=== PATIENT | male | born 1940 | race Caucasian/White ===

== ENCOUNTER 2016-04-11 17:15 | Inpatient (IN) | payer MEDICARE, MEDICAID, OTHER ==
[~2016-04-11] VITALS: Ht 177.8 cm; Wt 91.0 kg
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
[2016-04-11 18:26] LABS: AUTOMATED NEUTROPHIL # 3.6 TH/MM3 (1.8-7.7); BASOPHIL # 0.1 TH/MM3 (0-0.2); EOSINOPHIL # 0.2 TH/MM3 (0-0.4); EOSINOPHIL % 2.9 % (0.0-4.0); HEMATOCRIT 32.2 % (39.0-51.0); HEMO FLAGS DIFF FINAL; LYMPH % 24.2 % (9.0-44.0); LYMPHOCYTE # 1.4 TH/MM3 (1.0-4.8); MEAN CELL VOLUME 80.5 FL (80.0-100.0); MEAN CORPUSCULAR HEMOGLOBIN 25.3 PG (27.0-34.0); MEAN CORPUSCULAR HGB CONC 31.4 % (32.0-36.0); MONO % 10.3 % (0.0-8.0); NEUT % 61.6 % (16.0-70.0); PLATELET COUNT 129 TH/MM3 (150-450); RED BLOOD COUNT 4.01 MIL/MM3 (4.50-5.90); RED CELL DISTRIBUTION WIDTH 19.9 % (11.6-17.2); WHITE BLOOD COUNT 5.9 TH/MM3 (4.0-11.0)
[2016-04-11 19:00] VITALS: BP 119/59; PULSE 67; RESP 17; TEMP 98.1; O2SAT 99
[2016-04-11 19:03] VITALS: BP 151/69; PULSE 57; RESP 18; TEMP 98.3; O2SAT 100
[2016-04-11 19:08] VITALS: BP 151/68; PULSE 56; RESP 18; O2SAT 100
[2016-04-11 19:15] VITALS: BP 171/74; PULSE 61; RESP 15; O2SAT 100
[2016-04-11 19:28] LABS: ACETAMINOPHEN 5.5 MCG/ML (10.0-30.0); ALKALINE PHOSPHATASE 71 U/L (45-117); ALT (GPT) 24 U/L (12-78); ANION GAP 6 MEQ/L (5-15); AST (GOT) 35 U/L (15-37); BICARBONATE 30.9 MEQ/L (21.0-32.0); BLOOD UREA NITROGEN 16 MG/DL (7-18); CHLORIDE 104 MEQ/L (98-107); GLOMERULAR FILTRATION RATE 46 ML/MIN (>89); SODIUM (NA) 141 MEQ/L (136-145); TOTAL BILIRUBIN ADULT 0.6 MG/DL (0.2-1.0)
[2016-04-11 19:29] LABS: POTASSIUM 4.3 MEQ/L (3.5-5.1)
[2016-04-11 19:33] LABS: BLOOD, URINE NEG (NEG); COMMENT (UR) CULT NOT INDICATED; CULTURE IF INDICATED CULT NOT INDICATED; GLUCOSE,URINE NEG (NEG); KETONE, URINE NEG (NEG); MUCUS URINE FEW /lpf (OCC); NITRITE,URINE NEG (NEG); SQUAMOUS EPITHELIAL CELL URINE 1 /hpf (0-5); URINE COLOR YELLOW (YELLW/STRAW)
[2016-04-11 19:34] LABS: AMPHETAMINE, URINE NEG (NEG); BARBITURATES, URINE NEG (NEG); COCAINE, URINE NEG (NEG)
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
[2016-04-11] MEDS ORDERED: BUSP10TA PO (21:23)
[2016-04-11] MEDS ORDERED: PLAV75TA29 PO (21:23)
[2016-04-11] MEDS ORDERED: ATOR40TA16 PO (21:23)
[2016-04-11] MEDS ORDERED: AMIO200T PO (21:23)
[2016-04-11] MEDS ORDERED: NITR50VP (21:34)
[2016-04-11] MEDS ORDERED: LISI-519 PO (21:34)
[2016-04-11] MEDS ORDERED: TRIA.025%T TOPICAL (21:34)
[2016-04-11] MEDS ORDERED: TAMS5CAP PO (21:34)
[2016-04-11] MEDS ORDERED: PROS5TAB PO (21:34)
[2016-04-11] MEDS ORDERED: METO25TA3 PO (21:34)
[2016-04-11] MEDS ORDERED: NEUR600T PO (21:34)
[2016-04-11] MEDS ORDERED: TYLETAB36 PO (21:34)
[2016-04-11] MEDS ORDERED: ALBUAER3 INH (21:34)
[2016-04-11] MEDS ORDERED: OMEP20CA2 (21:34)
[2016-04-11] MEDS ORDERED: SYNT25TA PO (21:34)
[2016-04-11] MEDS ORDERED: SERO100T PO (21:34)
[2016-04-11] MEDS ORDERED: NITR1SUB3 SL (21:34)
[2016-04-11] MEDS ORDERED: PRED5TAB PO (21:34)
[2016-04-11] MEDS ORDERED: OXYGEN NAS.CANULA (22:02)
[2016-04-11] MEDS ORDERED: MAGNESIUM HYDROXIDE SUSP 30 ML CUP PO PRN (22:15)
[2016-04-11] MEDS ORDERED: ALUMINUM/MAGNESIUM/SIMETH 30 ML CUP PO PRN (22:15)
[2016-04-11] MEDS: AMIODARONE 200 MG TAB PO SCH (23:00)
[2016-04-11] MEDS: ATORVASTATIN 40 MG TAB PO SCH (23:00)
[2016-04-11] MEDS: busPIRone HCL 10 MG TAB PO SCH (23:00)
[2016-04-11] MEDS: ACETAMINOPHEN 325 MG TAB PO PRN (23:09)
[2016-04-11] MEDS ORDERED: NITROGLYCERIN 0.4 MG SL 25 TABS/BTL SL PRN (23:15)
[2016-04-11] MEDS ORDERED: ALBUTEROL SULFATE 90 MCG/ACT HFA 8 GM INHALER INH PRN (23:15)
[2016-04-11 23:30] VITALS: BP 167/75; PULSE 69; RESP 19; TEMP 98.3; O2SAT 86
[2016-04-11 23:40] VITALS: O2SAT 86
[2016-04-12 05:10] VITALS: BP 114/65; PULSE 88; RESP 19; TEMP 98.6; O2SAT 94
[2016-04-12] MEDS: LISINOPRIL 5 MG TAB PO SCH (08:51)
[2016-04-12] MEDS: GABAPENTIN 300 MG CAP PO SCH ×3 (08:51→21:10)
[2016-04-12] MEDS: METOPROLOL TARTRATE 25 MG TAB PO SCH (08:51)
[2016-04-12] MEDS: FINASTERIDE 5 MG TAB PO SCH (08:51)
[2016-04-12] MEDS: AMIODARONE 200 MG TAB PO SCH ×2 (08:51→21:11)
[2016-04-12] MEDS: busPIRone HCL 10 MG TAB PO SCH ×2 (08:52→21:10)
[2016-04-12] MEDS: CLOPIDOGREL 75 MG TAB PO SCH (08:52)
[2016-04-12] MEDS: predniSONE 5 MG TAB PO SCH (08:52)
[2016-04-12] MEDS: PANTOPRAZOLE SOD 20 MG DELAYED RELEASE TAB PO SCH (09:00)
[2016-04-12] MEDS: LEVOTHYROXINE SODIUM 25 MCG TAB PO SCH (09:02)
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
[2016-04-12] MEDS: ACETAMINOPHEN 325 MG TAB PO PRN (12:05)
[2016-04-12] MEDS ORDERED: RESP: ALBUTEROL 2.5 MG/IPRATROPIUM 0.5 MG NEB (PRN) NEB (16:00)
[2016-04-12 17:44] VITALS: O2SAT 94
[2016-04-12 20:06] VITALS: BP 138/63; PULSE 62; RESP 16; TEMP 96; O2SAT 94
[2016-04-12] MEDS ORDERED: GABAPENTIN 300 MG CAP PO SCH (21:00)
[2016-04-12] MEDS: FLUOCINOLONE ACETONIDE 0.01% CR 15 GM TUBE TOPICAL SCH (21:10)
[2016-04-12] MEDS: TAMSULOSIN HCL 0.4 MG CAP PO SCH ×2 (21:10)
[2016-04-12] MEDS: QUEtiapine FUMARATE 100 MG TAB PO SCH ×2 (21:11)
[2016-04-12] MEDS: ATORVASTATIN 40 MG TAB PO SCH (21:12)
[2016-04-13] MEDS: LEVOTHYROXINE SODIUM 25 MCG TAB PO SCH ×2 (06:00→06:21)
[2016-04-13 06:24] VITALS: BP 154/67; PULSE 59; RESP 16; TEMP 97.6; O2SAT 97
[2016-04-13] MEDS: ACETAMINOPHEN 325 MG TAB PO PRN ×2 (06:34→18:47)
[2016-04-13 09:39] VITALS: O2SAT 92
[2016-04-13] MEDS: FINASTERIDE 5 MG TAB PO SCH (10:14)
[2016-04-13] MEDS: GABAPENTIN 300 MG CAP PO SCH ×2 (10:14→20:20)
[2016-04-13] MEDS: CLOPIDOGREL 75 MG TAB PO SCH (10:14)
[2016-04-13] MEDS: AMIODARONE 200 MG TAB PO SCH ×2 (10:14→20:20)
[2016-04-13] MEDS: METOPROLOL TARTRATE 25 MG TAB PO SCH (10:14)
[2016-04-13] MEDS: LISINOPRIL 5 MG TAB PO SCH (10:14)
[2016-04-13] MEDS: PANTOPRAZOLE SOD 20 MG DELAYED RELEASE TAB PO SCH (10:15)
[2016-04-13] MEDS: predniSONE 5 MG TAB PO SCH (10:15)
[2016-04-13] MEDS: FLUOCINOLONE ACETONIDE 0.01% CR 15 GM TUBE TOPICAL SCH ×2 (10:15→20:20)
[2016-04-13] MEDS: busPIRone HCL 10 MG TAB PO SCH ×2 (10:15→20:20)
--- NOTE | 2016-04-13 11:25 | HHI.PYPN ---
Subjective Remarks Patient was seen for evaluation alone with social science professor Ludy and nurse charge Eagle, patient was poorly cooperative due to the level of sedation, he was obtunded, no able to provide any meaningful information, however as per nurse patient has been supported to be mostly calm without any significant periods of agitation or aggressive behavior at least in the last 24 hours. Patient has been medication compliant, no significant side effects so far. Review of Systems Other No significant somatic complaints Objective Alert: Yes [place]: Person (only), Place (hospital) Mood: Calm Affect: Restricted Memory Intact: Comment (poor. poor immediate and recent) Hallucinations: Auditory, Visual, Other (known at this moment) Delusions: No Delusion Type: Other Suicidal: Ideation (deneis) Homicidal: Ideation (deneis) Insight/Judgement Poor Vitals/IOs Vital Signs Date Time Temp Pulse Resp B/P Pulse Ox O2 Delivery O2 Flow Rate FiO2 04/13/16 09:39 92 Nasal Cannula 2.00 04/13/16 06:24 97.6 59 16 154/67 04/11/16 23:40 21 Intake and Output 04/12/16 04/12/16 04/13/16 08:00 16:00 00:00 Intake Total 240 ml 600 ml Output Total 2 ml Balance 238 ml 600 ml Assessment & Plan Problem List: (1) dementia with behavior problem and psychosis Assessment & Plan: Patient needs to continue the process of a psychiatric hospitalization for stabilization, medication adjustment and safety. Assessment & Plan Estimated LOS: days Justification for Cont. Inpt. She has a high risk to decompensate in a less restrictive environment. Request HC Surrog/Guard Advoc?: Yes Ryley Reyes MD Apr 13, 2016 11:25
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
[2016-04-13] MEDS: ACETAMINOPHEN/CODEINE 300 MG/30 MG TAB PO PRN (16:07)
[2016-04-13] MEDS: ATORVASTATIN 40 MG TAB PO SCH (20:20)
[2016-04-13] MEDS: TAMSULOSIN HCL 0.4 MG CAP PO SCH (20:20)
[2016-04-13] MEDS: QUEtiapine FUMARATE 100 MG TAB PO SCH (20:20)
[2016-04-13 21:16] VITALS: BP 144/68; PULSE 60; RESP 16; TEMP 97.8; O2SAT 98
[2016-04-14 06:15] VITALS: BP 118/56; PULSE 56; RESP 16; TEMP 97.3; O2SAT 96
[2016-04-14] MEDS: LEVOTHYROXINE SODIUM 25 MCG TAB PO SCH (06:32)
[2016-04-14] MEDS: ACETAMINOPHEN/CODEINE 300 MG/30 MG TAB PO PRN ×3 (06:50→20:17)
[2016-04-14] MEDS: busPIRone HCL 10 MG TAB PO SCH ×2 (08:33→20:17)
[2016-04-14] MEDS: FINASTERIDE 5 MG TAB PO SCH (08:33)
[2016-04-14] MEDS: PANTOPRAZOLE SOD 20 MG DELAYED RELEASE TAB PO SCH (08:33)
[2016-04-14] MEDS: LISINOPRIL 5 MG TAB PO SCH (08:33)
[2016-04-14] MEDS: GABAPENTIN 300 MG CAP PO SCH ×2 (08:33→20:18)
[2016-04-14] MEDS: predniSONE 5 MG TAB PO SCH (08:33)
[2016-04-14] MEDS: CLOPIDOGREL 75 MG TAB PO SCH (08:33)
[2016-04-14] MEDS: FLUOCINOLONE ACETONIDE 0.01% CR 15 GM TUBE TOPICAL SCH ×2 (08:33→20:18)
[2016-04-14] MEDS: AMIODARONE 200 MG TAB PO SCH ×2 (08:33→20:17)
[2016-04-14] MEDS: METOPROLOL TARTRATE 25 MG TAB PO SCH (08:33)
[2016-04-14 08:51] VITALS: O2SAT 94
[2016-04-14] MEDS: ACETAMINOPHEN 325 MG TAB PO PRN ×2 (10:10→23:55)
--- NOTE | 2016-04-14 12:54 | HHI.PYPN ---
Subjective Remarks Mr. Abernathy was seen today for psychiatric evaluation along with nurse in charge Lorie and social services counselor Ludy, patient was calm and cooperative, he explains that he is now much better medically and mentally, he reports good mood, good appetite, good sleep last night, he has been fully compliant with his psychiatric medications, no significant side effects reported, no previous of agitation or aggressive behavior reported. Patient denies suicidal and homicidal ideation, denies visual and auditory hallucinations. Patient is partially oriented in time and place, he knows that he is in a hospital in [place] in March 2016. Review of Systems Constitutional: DENIES: Diaphoretic episodes, Fatigue, Fever, Weight gain, Weight loss, Chills, Dizziness, Change in appetite, Night Sweats Endocrine: DENIES: Heat/cold intolerance, Polydipsia, Polyuria, Polyphagia Eyes: DENIES: Blurred vision, Diplopia, Eye inflammation, Eye pain, Vision loss , Photosensitivity, Double Vision Ears, nose, mouth, throat: DENIES: Tinnitus, Hearing loss, Vertigo, Nasal discharge, Oral lesions, Throat pain, Hoarseness, Ear Pain, Running Nose, Epistaxis, Sinus Pain, Toothache, Odynophagia Respiratory: DENIES: Apneas, Cough, Snoring, Wheezing, Hemoptysis, Sputum production, Shortness of breath Cardiovascular: DENIES: Chest pain, Palpitations, Syncope, Dyspnea on Exertion , PND, Lower Extremity Edema, Orthopnea, Claudication Gastrointestinal: DENIES: Abdominal pain, Black stools, Bloody stools, Constipation, Diarrhea, Nausea, Vomiting, Difficulty Swallowing, Anorexia Musculoskeletal: DENIES: Joint pain, Muscle aches, Stiffness, Joint Swelling, Back pain, Neck pain Integumentary: COMPLAINS OF: Rash, DENIES: Abnormal pigmentation, Nail changes , Pruritus Hematologic/lymphatic: DENIES: Bruising, Lymphadenopathy Immunologic/allergic: DENIES: Eczema, Urticaria Neurologic: DENIES: Abnormal gait, Headache, Localized weakness, Paresthesias, Seizures, Speech Problems, Tremor, Poor Balance Psychiatric: DENIES: Anxiety, Confusion, Mood changes, Depression, Hallucinations, Agitation, Suicidal Ideation, Homicidal Ideation, Delusions Objective Alert: Yes [place]: Person (only), Place (partially), Date, Situation Mood: Calm Affect: Euthymic Memory Intact: Immediate, Recent, Remote, Comment Hallucinations: Other (he denies) Delusions: No Delusion Type: Other (none) Suicidal: Ideation (deneis) Homicidal: Ideation (deneis) Insight/Judgement fair Vitals/IOs Vital Signs Date Time Temp Pulse Resp B/P Pulse Ox O2 Delivery O2 Flow Rate FiO2 04/14/16 08:51 94 Nasal Cannula 2.00 04/14/16 06:15 97.3 56 16 118/56 04/11/16 23:40 21 Intake and Output 04/13/16 04/13/16 04/14/16 08:00 16:00 00:00 Intake Total 60 ml Output Total 550 ml Balance -550 ml 60 ml Assessment & Plan Problem List: (1) dementia with behavior problem and psychosis Assessment & Plan: Patient will continue under psychiatric admission for stabilization of behavior dysregulation and psychosis. No changes in psychotropics today, support and psychotropic and provide. Assessment & Plan Estimated LOS: days Justification for Cont. Inpt. Patient is to continue psychiatric admission for stabilization of psychosis and behavior and medication adjustment Request HC Surrog/Guard Advoc?: Yes Ryley Reyes MD Apr 14, 2016 12:54
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
[2016-04-14 18:00] VITALS: BP 96/51; PULSE 60; RESP 17; TEMP 97.7; O2SAT 96
[2016-04-14] MEDS ORDERED: FOLI1TAB4 PO (19:05)
[2016-04-14] MEDS ORDERED: METH2.5T PO (19:05)
[2016-04-14] MEDS: ATORVASTATIN 40 MG TAB PO SCH (20:17)
[2016-04-14] MEDS: TAMSULOSIN HCL 0.4 MG CAP PO SCH (20:17)
[2016-04-14] MEDS: QUEtiapine FUMARATE 100 MG TAB PO SCH (20:17)
[2016-04-15] MEDS: ACETAMINOPHEN/CODEINE 300 MG/30 MG TAB PO PRN ×2 (02:18→09:06)
[2016-04-15 05:42] VITALS: BP 110/53; PULSE 54; RESP 16; TEMP 97.4; O2SAT 91
[2016-04-15] MEDS: LEVOTHYROXINE SODIUM 25 MCG TAB PO SCH (06:07)
[2016-04-15] MEDS ORDERED: METHOTREXATE 2.5 MG TAB PO SCH (09:00)
[2016-04-15] MEDS ORDERED: FOLIC ACID 1 MG TAB PO SCH (09:00)
[2016-04-15] MEDS: PANTOPRAZOLE SOD 20 MG DELAYED RELEASE TAB PO SCH (09:06)
[2016-04-15] MEDS: GABAPENTIN 300 MG CAP PO SCH (09:06)
[2016-04-15] MEDS: busPIRone HCL 10 MG TAB PO SCH (09:06)
[2016-04-15] MEDS: CLOPIDOGREL 75 MG TAB PO SCH (09:06)
[2016-04-15] MEDS: FINASTERIDE 5 MG TAB PO SCH (09:06)
[2016-04-15] MEDS: LISINOPRIL 5 MG TAB PO SCH (09:07)
[2016-04-15] MEDS: AMIODARONE 200 MG TAB PO SCH (09:07)
[2016-04-15] MEDS: METOPROLOL TARTRATE 25 MG TAB PO SCH (09:13)
[2016-04-15] MEDS: FLUOCINOLONE ACETONIDE 0.01% CR 15 GM TUBE TOPICAL SCH (09:18)
[2016-04-15 10:20] VITALS: RESP 20
[2016-04-15] MEDS ORDERED: NEUR300C PO (11:34)
[2016-04-15] MEDS ORDERED: PLAV75TA29 PO (11:34)
[2016-04-15] MEDS ORDERED: LISI-519 PO (11:34)
[2016-04-15] MEDS ORDERED: BUSP10TA PO (11:34)
[2016-04-15] MEDS ORDERED: METO25TA3 PO (11:34)
[2016-04-15] MEDS ORDERED: TAMS5CAP PO (11:34)
[2016-04-15] MEDS ORDERED: LIPI40TA PO (11:34)
[2016-04-15] MEDS ORDERED: FINA5TAB2 PO (11:34)
[2016-04-15] MEDS ORDERED: QUET1TAB8 PO (11:34)
[2016-04-15] MEDS ORDERED: LEVO25TA4 PO (11:34)
[2016-04-15] MEDS ORDERED: AMIO200T PO (11:34)
[2016-04-15] MEDS ORDERED: FLUO0.013 TOPICAL (11:37)
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
[2016-04-15 11:51] VITALS: O2SAT 95
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
== END 2016-04-15 11:50 | disposition home or self-care (01) | DRG 884 ==
LOC: NEPE 17:15 → NEDA 22:11 → H4EA 23:32
PROVIDERS: ADMIT Psychiatry & Neurology Psychiatry; ATTEND Psychiatry & Neurology Psychiatry
DX: F03.91 Unspecified dementia, unspecified severity, with behavioral disturbance (principal); Z99.81 Dependence on supplemental oxygen; G62.9 Polyneuropathy, unspecified; J44.9 Chronic obstructive pulmonary disease, unspecified; F29 Unspecified psychosis not due to a substance or known physiological condition; E03.9 Hypothyroidism, unspecified; E78.5 Hyperlipidemia, unspecified; G89.29 Other chronic pain; I10 Essential (primary) hypertension; I25.2 Old myocardial infarction; M19.90 Unspecified osteoarthritis, unspecified site; L40.50 Arthropathic psoriasis, unspecified; N40.0 Benign prostatic hyperplasia without lower urinary tract symptoms; Z79.02 Long term (current) use of antithrombotics/antiplatelets; Z87.891 Personal history of nicotine dependence
CPT/HCPCS: 80053; 80307; 80320; 80329; 81001; 85025; 99284; G0480; G0481; J7512; J8610